=== PATIENT | male | born 1975 | race African-American/Black ===

== ENCOUNTER 2016-09-21 20:08 | Emergency (ER) | payer SELFPAY ==
[2016-09-21] MEDS ORDERED: Ketorolac INJ* 30 MG/ML 1 ML VIAL IV ONE (21:07)
[2016-09-21] MEDS ORDERED: Ondansetron INJ* 2 MG/ML VIAL IV ONE (21:07)
[2016-09-21] MEDS ORDERED: NS 0.9% 1000 ML* 1,000 ML IV ONE (21:07)
--- NOTE | 2016-09-21 21:32 | ED ---
Abdominal Pain/Male - HPI Summary HPI Summary: 41 male presents with complaints of nausea vomiting and abdominal pain that began around 1600 today 09/21/16. Patient states he was experiencing the same symptoms a few days ago for a week straight that he thought was the flu and treated himself with OTC medication. The symptoms subsided for 2-3 days however have seemed to return today while at work at 1600. Patient states he vomited and had episodes of diarrhea about 3 times. Denies blood in vomit or diarrhea. Denies eating out besides the food he eats at his work ([employer]) and a piece of pizza this morning. He has not eaten anything else today. Has been drinking fluids. Admits to a headache. States he was at work and became diaphoretic experiencing cold sweats when he passed out for a couple of seconds per bystanders. He was brought in by EMS. Admits to headache and nausea right now. Also complains of mid-back pain that he relates from falling and hitting the wall during syncopal episode. - History of Current Complaint Chief Complaint: EDNauseaVomitDiarrh Stated Complaint: GENERAL ILLNESS Time Seen by Provider: 09/21/16 20:32 Hx Obtained From: Patient Onset/Duration: Sudden Onset Timing: Intermittent Severity Initially: Mild Severity Currently: Mild Pain Intensity: 6 Pain Scale Used: 0-10 Numeric Location: Diffuse - abdomen, mid-back pain bony tenderness due to fall Radiates: No Character: Cramping Aggravating Factor(s): Nothing Alleviating Factor(s): Nothing Associated Signs And Symptoms: Positive: Diaphoresis, Back Pain - hit wall upon syncopal episode, bony tenderness, Decreased Appetite, Vomiting, Diarrhea. Negative: Urinary Symptoms - Allergies/Home Medications Allergies/Adverse Reactions: Allergies Allergy/AdvReac Type Severity Reaction Status Date / Time Morphine Allergy Rash Verified 09/21/16 20:12 Penicillins Allergy Rash Verified 09/21/16 20:12 PMH/Surg Hx/FS Hx/Imm Hx Endocrine/Hematology History: Denies: Hx Diabetes Cardiovascular History: Denies: Hx Hypertension History: Reports: Other Problems/Disorders - one kidney - Surgical History Surgery Procedure, Year, and Place: none - Immunization History Date of Tetanus Vaccine: utd Date of Influenza Vaccine: none Immunizations Up to Date: Yes Infectious Disease History: No Infectious Disease History: Denies: Traveled Outside the [place] in Last 30 Days - Family History Known Family History: Positive: Diabetes - Social History Alcohol Use: None Substance Use Type: Reports: Marijuana Substance Use Comment - Amount & Last Used: daily Smoking Status (MU): Light Every Day Tobacco Smoker Review of Systems Positive: Chills, Skin Diaphoresis Eyes: Negative ENT: Negative Cardiovascular: Negative Respiratory: Negative Positive: Abdominal Pain, Vomiting, Diarrhea, Nausea Genitourinary: Negative Musculoskeletal: Negative Skin: Negative Positive: Headache Psychological: Normal All Other Systems Reviewed And Are Negative: Yes Physical Exam Triage Information Reviewed: Yes Vital Signs On Initial Exam: Initial Vitals Temp Pulse Resp BP Pulse Ox 98.6 F 70 16 111/64 100 09/21/16 20:15 09/21/16 20:15 09/21/16 20:15 09/21/16 20:15 09/21/16 20:15 Vital Signs Reviewed: Yes Appearance: Positive: No Pain Distress, Well-Nourished, Ill-Appearing Skin: Positive: Warm, Skin Color Reflects Adequate Perfusion, Dry. Negative: Diaphoretic, Pale, Erythema @ Head/Face: Positive: Normal Head/Face Inspection Eyes: Positive: Normal, EOMI, SILVIA, Conjunctiva Clear ENT: Positive: Normal ENT inspection, Hearing grossly normal, Pharynx normal Neck: Positive: Supple, Nontender, No Lymphadenopathy Respiratory/Lung Sounds: Positive: Clear to Auscultation, Breath Sounds Present Cardiovascular: Positive: Normal, RRR, Pulses are Symmetrical in both Upper and Lower Extremities Abdomen Description: Positive: No Organomegaly, Soft, Bruit, Guarding, McBurney' s Point Tenderness, Other: - tender on palpation of RLQ and RUQ, minimal tenderness on left side. no percussion tenderness. Rebound, Rovsing and Psoas sign negative. (-)[place]. Negative: CVA Tenderness (R), CVA Tenderness (L), Distended, Hepatomegaly, Splenomegaly Bowel Sounds: Positive: Present Musculoskeletal: Positive: Normal, Strength/ROM Intact, Pain @ - on palpation of lumbar spine no visible deformity, bruising, erythema or edema noted. no crepitus or step-off. skin and sensation intact. Neurological: Positive: Normal, Sensory/Motor Intact, Alert, Oriented to Person Place, Time, CN Intact II-III, Reflexes Intact, NV Bundle Intact Distally, Normal Gait Psychiatric: Positive: Normal, Affect/Mood Appropriate - Vinson Coma Scale Best Eye Response: 4 - Spontaneous Best Motor Response: 6 - Obeys Commands Best Verbal Response: 5 - Oriented Coma Scale Total: 15 Diagnostics - Vital Signs Vital Signs Temp Pulse Resp BP Pulse Ox 09/21/16 20:15 98.6 F 70 16 111/64 100 - Laboratory Result Diagrams: 09/21/16 21:30 09/21/16 21:30 Lab Statement: Any lab studies that have been ordered have been reviewed, and results considered in the medical decision making process. - Radiology lumbar spine Xray Interpretation: No Acute Changes - NO EVIDENCE FOR FRACTURE. Radiology Interpretation Completed By: Radiologist - CT abdomen/pelvis CT Interpretation: No Acute Changes - normal gallbladder and appendix. absent left kidney, no definite evidence of acute pathology. Re-Evaluation - Re-Evaluation First Eval Re-Evaluation Time: 01:00 Change: Improved - feeling better Second Eval Re-Evaluation Time: 14:00 Change: Improved Comment: still feels better, has not vomited, not nauseous and is able to eat 3 jellos and drink water Abdominal Pain Fem Course/Dx - Course Course Of Treatment: Labs, UA and x-ray of lumbar spine and CT with contrast obtained. X-ray negative. CT negative. Patient vomited once before zofran administered. Green bile in appearanc. Fluids, toradol and zofran administered for headache and nausea. Patient was feeling much better able to eat and drink. Will be d/c with zofran and told to follow up with primary. Aware of worsening signs and symptoms. - Diagnoses Differential Diagnosis/HQI/PQRI: Appendicitis, Constipation, Diverticulitis, Gall Bladder Disease, Pancreatitis, Urinary Tract Infection, Other Provider Diagnoses: Viral gastroenteritis, Nausea & vomiting, Diarrhea - Provider Notifications Discussed Care Of Patient With: Dr Pro Discharge - Discharge Plan Condition: Stable Disposition: HOME Prescriptions: Ondansetron TAB* [Zofran 4 MG Tab*] 4 mg PO Q6H PRN #25 tab PRN Reason: Nausea Forms: *Work Release Referrals: No Primary Care Phys,NOPCP [Primary Care Provider] - [facility] [place] [facility]ICIAN REFERRAL [Outside] Additional Instructions: Take prescribed zofran for nausea as needed every 4-6 hours. Take a probiotic pill or eat japanese yogurt to help replenish the good bacteria in your digestive tract. Drink plenty of fluids. Recommenced eating bland foods and not eating out. Bread, rice, applesauce and toast. You may also try OTC anti-diarrheal medications if you would like. If you experience worsening symptoms such as profuse vomiting, blood in stool or vomit, dehydration, unable to eat and severe abdominal pain please seek medical attention promptly and return. Follow up with primary care provider is recommended.
[2016-09-21 21:46] LABS: Hematocrit 40 % (42-52); Hemoglobin 12.9 g/dl (14.0-18.0); Mean Corpuscular HGB Conc 32 g/dl (31-36); Mean Corpuscular Hemoglobin 26 pg (27-31); Mean Corpuscular Volume 79 fL (80-94); Mean Platelet Volume 8 um3 (7.4-10.4); Red Blood Count 5.07 10^6/ul (4.0-5.4); Red Cell Distribution Width 14 % (10.5-15); White Blood Count 13.1 10^3/ul (3.5-10.8)
[2016-09-21 21:59] LABS: Albumin 4.3 g/dL (3.2-5.2); BUN/Creatinine Ratio 12.4 (8-20); C Reactive Protein 1.06 mg/L (< 5.00); Calcium 9.5 mg/dL (8.6-10.3); EGFR African American 109.2 (>60); EGFR Non-African American 84.9 (>60); Globulin 3.4 g/dL (2-4); Potassium 3.7 mmol/L (3.5-5.0); Total Bilirubin 0.3 mg/dL (0.2-1.0); Total Protein 7.7 g/dL (6.4-8.9)
--- NOTE | 2016-09-21 22:03 | RAD ---
INDICATION: Injury, back pain. COMPARISON: There are no prior studies available for comparison. TECHNIQUE: 3 views of the lumbar spine were obtained including lateral, AP and a coned-down lateral view of the lumbar sacral junction. FINDINGS: The vertebra are in normal alignment. No fracture is seen. Disc spaces appear maintained. IMPRESSION: NO EVIDENCE FOR FRACTURE.
[2016-09-21] MEDS ORDERED: Iodixanol* (CONTRAST) 320 MG/ML 100 ML SDV IV ONE (22:55)
[2016-09-22 02:15] VITALS: BP 132/111
[2016-09-22 02:24] LABS: Urine Bacteria Absent (Absent); Urine Bilirubin Negative (Negative); Urine Glucose Negative (Negative); Urine Nitrite Negative (Negative)
[2016-09-22] MEDS ORDERED: Ondansetron ODT TAB* 4 MG PO ONE (02:42)
--- NOTE | 2016-09-22 09:08 | RAD ---
Indication: Abdominal pain. Contrast: Administered 80.0 ml of VISIPAQUE 320 mg/ml CT of the abdomen and pelvis was performed after oral and IV contrast administration. Lung bases demonstrate no pleural fluid, nodules or masses. Heart is of normal size without evidence of pericardial effusion. Liver is normal in size. No focal lesions or intrahepatic duct dilatation is noted. The gallbladder is partially contracted. No pericholecystic fluid or wall thickening is noted. The spleen is normal in size. The pancreas demonstrates no mass or pancreatic duct dilatation. The common duct is not dilated. Bilateral adrenal hyperplasia is noted. There is an absent left kidney noted. The right kidney is grossly. The patient has had a left nephrectomy. No retroperitoneal adenopathy is noted. Aorta demonstrates no evidence of aneurysmal dilatation. No pelvic adenopathy is identified. The appendix is visualized and is unremarkable. No dilated loops of bowel are noted. No retroperitoneal lymphadenopathy is noted. No free fluid is identified. Normal appendix is identified. The urinary bladder and prostate are unremarkable. IMPRESSION: CONTRACTED GALLBLADDER. NORMAL APPENDIX. NO ABNORMAL MASSES OR FLUID COLLECTIONS ARE IDENTIFIED. PATIENT STATUS POST LEFT NEPHRECTOMY.
--- NOTE | 2016-09-23 09:17 | ED ---
IMarcus Aidan, scribed for Demarcus Pro MD on 09/22/16 at 0146 . Progress - Progress Note Progress Note: Pt came with a complaint of vomiting and diarrhea for several days. Sx went away for some time, but then he had more vomiting today as well as suprapubic tenderness and R flank pain. Course/Dx - Course Course Of Treatment: Labs and x-ray of lumbar spine obtained. Fluids, toradol and zofran administered for headache and nausea. - Diagnoses Provider Diagnoses: Viral gastroenteritis, Nausea & vomiting, Diarrhea The documentation as recorded by the Marcus stephen Aidan accurately reflects the service I personally performed and the decisions made by , Demarcus Pro MD.
== END 2016-09-22 03:00 | disposition home or self-care (01) ==
LOC: ED 20:08
DX: K52.9 Noninfective gastroenteritis and colitis, unspecified (principal); R11.2 Nausea with vomiting, unspecified; R19.7 Diarrhea, unspecified; M54.9 Dorsalgia, unspecified; R51 Headache
CPT/HCPCS: 36415; 72100; 74177; 80053; 81003; 81015; 83605; 83690; 85025; 86140; 87502; 96374; 96375; 99283; J1885; J2405; Q9967

== ENCOUNTER 2019-04-25 20:01 | Emergency (ER) | payer SELFPAY ==
--- OUTSIDE RECORDS SUMMARY | 2019-04-25 20:14 | XMS REPORT | Summary of Care ---
:1975 Author Organization [facility] Address [address] [facility] [place] [address] Care Team Providers Name Role Phone Zoe Gonzalez DO Primary Care Provider Reason for Referral Refer to Department Only (Routine) Status Reason Specialty Diagnoses / Referred By Referred To Procedures Contact Contact Pending Review Gastroenterology Diagnoses Dysphagia, unspecified type Zoe Ying Gastroenterolo DO gy [address] [place] [address] [place] Phone: [phone] Phone: Scheduling Instructions Is the patient on cpap machine?No Is the patient on oxygen?No BP 118/70 | Pulse 80 | Temp 96.8 F (36 C) (Tympanic) | Resp 18 | Ht 5' 9" (1.753 m) | Wt 120 lb (54.4 kg) | SpO2 97% | BMI 17.72 kg/m BMI Readings from Last 4 Encounters: 03/19/19 : 17.72 kg/m 09/06/18 : 18.90 kg/m 12/21/16 : 18.13 kg/m Controlled Substance Medications: Anticoagulant Medications: Psychiatric/Antianxiety Medications: Antiretroviral Medications: Reason for Visit Reason Comments Establish Care Encounter Details Date Type Department Care Team Description 03/19/2019 Office Visit Violet Odell, Encounter to establish care (Primary Dx); Practice DO Zoe Anemia, unspecified type; [address] Dysphagia, unspecified type; [place] [address] Gastroesophageal reflux disease without esophagitis; [id number] Anxiety; [phone] Low back pain, unspecified back pain laterality, unspecified chronicity, with sciatica presence unspecified; Substance dependence ([facility]) Allergies Active Allergy Reactions Severity Noted Date Comments Penicillin G Hives 10/16/2016 Vancomycin Dermatologic Reaction 12/26/2017 itching documented as of this encounter (statuses as of 03/20/2019) Medications Medication Sig Dispensed Refills Start Date End Date Status escitalopram Take 1 Tab by 30 Tab 0 03/19/2019 Active (LEXAPRO) 10 MG Oral mouth DAILY. TabIndications: Anxiety ciprofloxacin Take 1 Tab by 6 Tab 0 10/16/2016 03/19/2019 Discontinued (CIPRO) 500 MG Oral mouth TWICE Tab DAILY. Tamsulosin HCl Take 1 Cap by 14 Cap 0 10/16/2016 03/19/2019 Discontinued (FLOMAX) 0.4 MG Oral mouth DAILY. Cap HYDROcodone-acetamin Take 1 Tab by 18 Tab 0 12/20/2018 03/19/2019 Discontinued ophen (NORCO) 5-325 mouth EVERY MG Oral Tab FOUR HOURS NEEDED (moderate to severe pain). Max Daily Amount: 6 Tabs. documented as of this encounter (statuses as of 03/20/2019) Active Problems No known active problemsdocumented as of this encounter (statuses as of 2018) Social History Tobacco Use Types Packs/Day Years Used Date Current Every Day Smoker Cigarettes 1 3 Smokeless Tobacco: Never Used Alcohol Use Drinks/Week oz/Week Comments No Sex Assigned at Date Recorded Not on file Job Start Date Occupation Industry Not on file Not on file Not on file Travel History Travel Start Travel End No recent travel history available. documented as of this encounter Last Filed Vital Signs Vital Sign Reading Time Taken Comments Blood Pressure 118/70 03/19/2019 10:25 AM EDT Pulse 80 03/19/2019 10:25 AM EDT Temperature 36 03/19/2019 10:25 AM EDT C (96.8 F) Respiratory Rate 18 03/19/2019 10:25 AM EDT Oxygen Saturation 97% 03/19/2019 10:25 AM EDT Inhaled Oxygen Concentration - - Weight 54.4 kg (120 lb) 03/19/2019 10:25 AM EDT Height 175.3 cm (5' 9") 03/19/2019 10:25 AM EDT Body Mass Index 17.72 03/19/2019 10:25 AM EDT documented in this encounter Patient Instructions Patient InstructionsZoe Gonzalez DO - 03/19/2019 10:00 AM EDTGo to [address] [place] to get blood work done (Fasting) Schedule appointment with [facility] for GI referral. Lexapro sent to your pharmacy. Follow up in 1 month, sooner if needed. Zoe Odell DO documented in this encounter Progress Notes Zoe Gonzalez DO - 03/19/2019 10:00 AM EDT PATIENT: Omar Centeno : 1975 DATE OF SERVICE: 03/19/2019 CHIEF COMPLAINT: Chief Complaint Patient presents with [facility] Subjective HISTORY OF PRESENT ILLNESS: Omar Centeno is a 43-y.o. male. HPI Patient presents today to [facility]. Patient has never seen a physician and is not currently taking any medications for any chronic issues. He has a history of anemia and does admit to feeling fatigued recently, which he states may be attributed to working two jobs and an increase in stress at home. His last CBC was in December 2018 and Hgb was 12.3. Patient states that he was told to take iron pills, but he has not taken any. Patient also admits to having some panic attacks for the past few years. He states these only occur about once a month and are usually triggered by stress. When these attacks occur, he says he can't breath, his chest feels tight, and his heart feels like it is racing. He has not seen a physician for these and has never been formally diagnosed. Patient also complaints of food getting stuck in his throat while eating. He says this has been going on for 3-4 months and happens almost every time he eats. He also admits to some symptoms of acid reflux- burning and belching. He has not tried any OTC medications for his reflux. Also admits to low back pain, triggered by lifting heavy boxes at work. He has not tried anything for relief. Patient has one kidney, as he donated one to his Uncle in 1999. Declines flu shot, pneumonia vaccination and HIV screening today. Past Medical History: Diagnosis Date Anemia Family History Problem Relation Age of Onset Diabetes Mother No current outpatient medications on file. No current facility-administered medications for this visit. Allergies Allergen Reactions Penicillin G Hives Vancomycin Dermatologic Reaction itching Social History Socioeconomic History Marital status: Spouse name: Not on file Number of children: Not on file Years of education: Not on file Highest education level: Not on file Occupational History Not on file Social Needs Financial resource strain: Not on file Food insecurity: Worry: Not on file Inability: Not on file Transportation needs: Medical: Not on file Non-medical: Not on file Tobacco Use Smoking status: Current Every Day Smoker Packs/day: 1.00 Years: 3.00 Pack years: 3.00 Types: Cigarettes Smokeless tobacco: Never Used Substance and Sexual Activity Alcohol use: No Drug use: No Sexual activity: Yes Lifestyle Physical activity: Days per week: Not on file Minutes per session: Not on file Stress: Not on file Relationships Social connections: Talks on phone: Not on file Gets together: Not on file Attends jew service: Not on file Active member of club or organization: Not on file Attends meetings of clubs or organizations: Not on file Relationship status: Not on file Intimate partner violence: Fear of current or ex partner: Not on file Emotionally abused: Not on file Physically abused: Not on file Forced sexual activity: Not on file Other Topics Concern Back Care Not Asked Bike Helmet Not Asked Blood Transfusions Not Asked Caffeine Concern Not Asked Exercise Not Asked Hobby Hazards Not Asked International Travel Not Asked Service Not Asked Occupational Exposure Not Asked Seat Belt Not Asked Self-Exams Not Asked Sleep Concern Not Asked Special Diet Not Asked Stress Concern Not Asked Weight Concern Not Asked Social History Narrative Not on file Over the last 2 weeks, have you been feeling down, depressed, anxious, or hopeless?: 0 Over the past 2 weeks, have you felt little interest or pleasure in doing things ?: 0 REVIEW OF SYSTEMS: Review of Systems Constitutional: Positive for malaise/fatigue. Negative for chills and fever. HENT: Negative for congestion, hearing loss and sore throat. Eyes: Negative for blurred vision, double vision and photophobia. Respiratory: Negative for cough, shortness of breath and wheezing. Cardiovascular: Negative for chest pain, palpitations and leg swelling. Gastrointestinal: Positive for heartburn. Negative for constipation, diarrhea, nausea and vomiting. Genitourinary: Negative for dysuria, frequency and urgency. Musculoskeletal: Positive for back pain. Negative for joint pain and neck pain. Skin: Negative for itching and rash. Neurological: Negative for dizziness, weakness and headaches. Psychiatric/Behavioral: Positive for substance abuse. Negative for depression. The patient is nervous/anxious. Objective PHYSICAL EXAM: VITALS: BP 118/70 | Pulse 80 | Temp 96.8 F (36 C) (Tympanic) | Resp 18 | Ht 5' 9" (1.753 m) | Wt 120 lb (54.4 kg) | SpO2 97% | BMI 17.72 kg/m Body mass index is 17.72 kg/m. Physical Exam Constitutional: He is oriented to person, place, and time. He appears well- developed and well-nourished. HENT: Head: Normocephalic and atraumatic. Right Ear: External ear normal. Left Ear: External ear normal. Eyes: Pupils are equal, round, and reactive to light. EOM are normal. Neck: Normal range of motion. No tracheal deviation present. No thyromegaly present. Cardiovascular: Normal rate, regular rhythm and normal heart sounds. Exam reveals no gallop and no friction rub. No murmur heard. Pulmonary/Chest: Effort normal and breath sounds normal. No respiratory distress. He has no wheezes.He has no rales. Abdominal: Soft. Bowel sounds are normal. There is tenderness (epigastric). There is guarding. Musculoskeletal: Normal range of motion. He exhibits no edema. Lymphadenopathy: He has no cervical adenopathy. Neurological: He is alert and oriented to person, place, and time. Skin: Skin is warm and dry. Psychiatric: He has a normal mood and affect. His behavior is normal. Judgment and thought content normal. ASSESSMENT / IMPRESSION: ICD-9-CM ICD-10-CM 1. Encounter to establish care V65.8 Z76.89 CBC NO DIFFERENTIAL LIPID PROFILE 2. Anemia, unspecified type 285.9 D64.9 CBC NO DIFFERENTIAL 3. Dysphagia, unspecified type 787.20 R13.10 REFER TO GI 4. Gastroesophageal reflux disease without esophagitis 530.81 K21.9 5. Anxiety 300.00 F41.9 escitalopram (LEXAPRO) 10 MG Oral Tab 6. Low back pain, unspecified back pain laterality, unspecified chronicity, with sciatica presence unspecified 724.2 M54.5 7. Substance dependence ([facility]) 304.90 F19.20 Plan Establish Care -Will order CBC and Lipid Profile Anemia -Will order CBC Dysphagia -Referral to GI GERD -Told patient he can try OTC medications for his reflux symptoms Anxiety -Will start trial of Lexapro 10mg daily -Patient declines therapy/counseling at this time -Will reassess at next visit Low Back Pain -Explained to patient that he can try OTC remedies, such as Tylenol. Can also try heat/ice -Patient can also make an appointment for OMT for his back pain -If pain does not resolve, will consider PT referral Substance Dependence -Patient admits to smoking marijuana daily -Counseled patient that this may be contributing to his fatigue and anxiety Follow-up in 1 month, sooner if needed Patient seen and discussed with Dr. Palacios, who agrees with the above assessment and plan. Author: Zoe Odell DO 03/19/2019 10:28 documented in this encounter Plan of Treatment Date Type Specialty Care Team Description 05/19/2019 Office Visit [facility] Zoe Gonzalez DO [address] [place] [address] Name Type Priority Associated Diagnoses Order Schedule CBC NO DIFFERENTIAL Lab Routine Anemia, unspecified type Expected: 03/19/2019 Encounter to establish care (Approximate), Expires: 03/19/2020 LIPID PROFILE Lab Routine Encounter to establish care Expected: 03/19/2019 (Approximate), Expires: 03/19/2020 Name Type Priority Associated Diagnoses Order Schedule REFER TO GI Referral Routine Dysphagia, unspecified type Expected: 2018, Expires: 03/19/2020 Health Maintenance Due Date Last Done Comments PNEUMOCOCCAL 0-64 YRS (1 of - 1980 PPSV23) HIV SCREENING 1989 LIPID DISORDER SCREENING 1992 DEPRESSION SCREENING 03/19/2020 03/19/2019 INFLUENZA VACCINE (#1) 2020 Postponed from 03/08/2019 (Patient refused) HPV IMMUNIZATION SERIES Aged Out No longer eligible based on patient's age to complete this topic MENINGOCOCCAL VACCINE IMM Aged Out No longer eligible based on patient's age to complete this topic documented as of this encounter Results Not on filedocumented in this encounter Visit Diagnoses Diagnosis Encounter to establish care - Primary Other reasons for seeking consultation Anemia, unspecified type Dysphagia, unspecified type Gastroesophageal reflux disease without esophagitis Esophageal reflux Anxiety Anxiety state, unspecified Low back pain, unspecified back pain laterality, unspecified chronicity, with sciatica presence unspecified Substance dependence (HCC) Unspecified drug dependence, unspecified documented in this encounter Insurance Payer Benefit Plan / Subscriber ID Effective Dates Phone Address Type Group [facility] [employer] [facility] x[facility]x 2018-[facility] [employer] [facility]([phone]) [facility] [employer] [facility] xxxxxxxxxx 2018-[facility] [employer] [facility]([id number]) MEDICAID [facility] xxxxxxxxxx 2018-[place] [employer] [place] [employer] t documented as of this encounter
[2019-04-25] MEDS ORDERED: NS 0.9% 1000 ML** 1,000 ML IV ONE (20:16)
--- NOTE | 2019-04-25 20:17 | ED ---
Neurological HPI - HPI Summary HPI Summary: This patient is a 43 year old M LENNY via EMS to ED with a chief complaint of syncopal episode at work earlier today. Patient works in the kitchen. He reports having a headache all day and felt tired. He ate some candy bars since he felt like his blood sugar levels were low, but then he started to feel that the room was spinning and then had a syncopal episode. Patient hit the back of his head on a breaker box. Patient is slightly anemic, but he takes iron pills. In the ED room, patient reports having headache and fatigue. He does not have a history of headache/migraines, but he does report having had syncopal episodes like this before. The patient rates the pain 9/10 in severity. Symptoms aggravated by nothing. Symptoms alleviated by nothing. - History of Current Complaint Chief Complaint: EDSyncope Stated Complaint: SYNCOPE PER EMS Time Seen by Provider: 04/25/19 20:09 Hx Obtained From: Patient Onset/Duration: Sudden Onset, Started hours ago, Still Present - Headache/tired Timing: Constant Onset Severity: Severe Current Severity: Severe Pain Intensity: 9 Pain Scale Used: 0-10 Numeric Character: Room Spinning, Weak Number of Episodes: 1 Syncope Context: Loss of Consciousness: Yes, Activity, Associated Head Trauma Aggravating: Nothing Alleviating: Nothing Associated Signs and Symptoms: Positive: Headache - Allergy/Home Medications Allergies/Adverse Reactions: Allergies Allergy/AdvReac Type Severity Reaction Status Date / Time morphine Allergy Rash Verified 04/25/19 21:50 Penicillins Allergy Rash Verified 04/25/19 21:50 PMH/Surg Hx/FS Hx/Imm Hx Endocrine/Hematology History: Denies: Hx Diabetes Cardiovascular History: Denies: Hx Hypertension History: Reports: Other Problems/Disorders - one kidney Denies: Hx Renal Disease - Surgical History Surgery Procedure, Year, and Place: none - Immunization History Date of Tetanus Vaccine: utd Date of Influenza Vaccine: none Infectious Disease History: No Infectious Disease History: Denies: Traveled Outside the [place] in Last 30 Days - Family History Known Family History: Positive: Diabetes - Social History Alcohol Use: None Hx Substance Use: Yes Substance Use Type: Reports: Marijuana Substance Use Comment - Amount & Last Used: daily Hx Tobacco Use: Yes Smoking Status (MU): Heavy Every Day Tobacco Smoker Amount Used/How Often: 1ppd Review of Systems Positive: Fatigue Positive: Headache All Other Systems Reviewed And Are Negative: Yes Physical Exam - Summary Physical Exam Summary: Appearance: The patient is well-nourished in no acute distress and in no acute pain. Skin: The skin is warm and dry, and skin color reflects adequate perfusion. HEENT: The head is normocephalic and atraumatic. The pupils are equal and reactive. The conjunctivae are clear and without drainage. Nares are patent and without drainage. Mouth reveals moist mucous membranes, and the throat is without erythema and exudate. The external ears are intact. The ear canals are patent and without drainage. The tympanic membranes are intact. Neck: The neck is supple with full range of motion and non-tender. There are no carotid bruits. There is no neck vein distension. Respiratory: Chest is non-tender. Lungs are clear to auscultation and breath sounds are symmetrical and equal. Cardiovascular: Heart is regular rate and rhythm. There is no murmur or rub auscultated. There is no peripheral edema and pulses are symmetrical and equal. Abdomen: The abdomen is soft and non-tender. There are normal bowel sounds heard in all four quadrants and there is no organomegaly palpated. Musculoskeletal: There is no back tenderness noted. Extremities are non-tender with full range of motion. There is good capillary refill. There is no peripheral edema or calf tenderness elicited. Neurological: Patient is alert and oriented to person, place and time. The patient has symmetrical motor strength in all four extremities. Cranial nerves are grossly intact. Deep tendon reflexes are symmetrical and equal in all four extremities. GCS: 15. Psychiatric: The patient has an appropriate affect and does not exhibit any anxiety or depression. Triage Information Reviewed: Yes Vital Signs On Initial Exam: Initial Vitals Temp Pulse Resp BP Pulse Ox 98.5 F 63 16 131/95 99 04/25/19 20:02 04/25/19 20:02 04/25/19 20:02 04/25/19 20:02 04/25/19 20:02 Vital Signs Reviewed: Yes Procedures - Sedation Patient Received Moderate/Deep Sedation with Procedure: No Diagnostics - Vital Signs Vital Signs Temp Pulse Resp BP Pulse Ox 04/25/19 20:02 98.5 F 63 16 131/95 99 - Laboratory Result Diagrams: 04/25/19 20:24 04/25/19 20:24 Lab Statement: Any lab studies that have been ordered have been reviewed, and results considered in the medical decision making process. - EKG 2003 Cardiac Rate: NL - 73 BPM EKG Rhythm: Sinus Rhythm ST Segment: Normal Ectopy: None Summary of EKG Findings: Normal sinus rhythm at 73 BPM, normal ST, no ectopy, no STEMI. ED physician has reviewed and interpreted this EKG. Re-Evaluation - Re-Evaluation First Eval Re-Evaluation Time: 21:44 Comment: Patient reports still feeling weak and anxious. Course/Dx - Course Course Of Treatment: Mr. Centeno had of forewarned syncopal episode while working in a hot kitchen. He has had these before. He was nontoxic in appearance with stable vitals. He was placed on a monitor and observed while IV was initiated and labs were checked while he was getting IV fluid. At one point he began to complain that he couldn't remember why he was in the emergency department. He had been napping and just woken up. He was very anxious when I saw him and his informed me that he had just been started on anti-anxiety medicine [address] scan was obtained which was negative to my reading and I discussed the possibility of a lumbar puncture with him. He was resistant to this idea and obviously anxious therefore I ordered Ativan for him. He is being turned over it and if shift pending official CT read and recheck after Ativan. - Diagnoses Provider Diagnoses: Syncope Discharge ED - Sign-Out/Discharge Documenting (check all that apply): Sign-Out Patient Signing out patient TO: Mendel Ingram - Discharge Plan Condition: Good Disposition: HOME Patient Education Materials: Syncope (ED) Referrals: [facility] [Outside] - 1 Week - Billing Disposition and Condition Condition: GOOD Disposition: Home - Attestation Statements Document Initiated by Scribe: Yes Documenting Scribe: Deion Ogden Provider For Whom Dorothy is Documenting (Include Credential): Mendel Olvera MD Scribe Attestation: I, Deion Ogden, scribed for Mendel Olvera MD on 04/26/19 at 1032. Scribe Documentation Reviewed: Yes Provider Attestation: The documentation as recorded by the Deion stephen accurately reflects the service I personally performed and the decisions made by me, Mendel Olvera MD Status of Scribe Document: Viewed
[2019-04-25 20:31] LABS: ABS Eosinophils 0.1 10^3/ul (0-0.6); ABS Lymphocytes 2.5 10^3/ul (1.0-4.8); ABS Monocytes 0.6 10^3/ul (0-0.8); ABS Neutrophils 6.1 10^3/ul (1.5-7.7); Eosinophil % 0.8 %; Hematocrit 38 % (42-52); Hemoglobin 12.4 g/dL (14.0-18.0); Lymphocyte % 26.5 %; Mean Corpuscular HGB Conc 33 g/dL (31-36); Mean Corpuscular Hemoglobin 26 pg (27-31); Mean Corpuscular Volume 79 fL (80-94); Mean Platelet Volume 7.7 fL (7.4-10.4); Nucleated Red Blood Cells % 0.1; Platelet Count 252 10^3/uL (150-450); Red Blood Count 4.82 10^6 /uL (4.18-5.48); Red Cell Distribution Width 20 % (10-15); White Blood Count 9.2 10^3/uL (3.5-10.8)
[2019-04-25] MEDS ORDERED: Ketorolac INJ* 30 MG/ML 1 ML VIAL IV PUSH ONE (20:34)
[2019-04-25 20:48] LABS: Albumin 4.4 g/dL (3.2-5.2); Albumin/Globulin Ratio 1.3 (1-3); BUN/Creatinine Ratio 9.6 (8-20); Calcium 9.4 mg/dL (8.6-10.3); EGFR African American 84.4 (>60); EGFR Non-African American 69.8 (>60); Globulin 3.3 g/dL (2-4); Magnesium 2.1 mg/dL (1.9-2.7); Potassium 3.2 mmol/L (3.5-5.0); Total Bilirubin 0.4 mg/dL (0.2-1.0); Total Protein 7.7 g/dL (6.4-8.9)
[2019-04-25 21:41] LABS: TSH (Thyroid Stimulating Horm) 2.88 mcIU/mL (0.34-5.60)
[2019-04-25] MEDS ORDERED: Lorazepam PYXIS KEY PRN (21:44)
[2019-04-25] MEDS ORDERED: LORazepam INJ* 2 MG/ML 1 ML VIAL IV ONE (21:44)
--- NOTE | 2019-04-25 22:16 | ED ---
Progress - Progress Note Progress Note: This patient was signed out from Dr. Olvera to Dr. Ingram at shift change at 2200 on 04/25/19, pending disposition, awaiting Brain CT. Brain CT reveals, per radiologist, IMPRESSION: No acute intracranial abnormality. ED physician has reviewed this radiology report. The patients condition is stable and will be discharged to home with Dx of syncope. - Results/Orders Results/Orders: Brain CT reveals, per radiologist, IMPRESSION: No acute intracranial abnormality. ED physician has reviewed this radiology report. Course/Dx - Course Course Of Treatment: This patient was signed out from Dr. Olvera to Dr. Ingram at shift change at 2200 on 04/25/19, pending disposition, awaiting Brain CT. Brain CT reveals, per radiologist, IMPRESSION: No acute intracranial abnormality. ED physician has reviewed this radiology report. The patients condition is stable and will be discharged to home with Dx of syncope. - Diagnoses Provider Diagnoses: Syncope Discharge ED - Sign-Out/Discharge Documenting (check all that apply): Patient Departure - Discharge - Discharge Plan Condition: Good Disposition: HOME Patient Education Materials: Syncope (ED) Referrals: [facility] [Outside] - 1 Week - Billing Disposition and Condition Condition: GOOD Disposition: Home - Attestation Statements Document Initiated by Scribe: Yes Documenting Scribe: Deidre Dsouza Provider For Whom Dorothy is Documenting (Include Credential): Mendel Ingram MD Scribe Attestation: Deidre Morejon, scribed for Mendel Ingram MD on 04/26/19 at 2052. Scribe Documentation Reviewed: Yes Provider Attestation: The documentation as recorded by the Deidre stephen accurately reflects the service I personally performed and the decisions made by Mendel reza MD Status of Scribe Document: Viewed
[2019-04-25 23:46] VITALS: BP 118/50
== END 2019-04-25 23:51 | disposition home or self-care (01) ==
LOC: ED 20:01
DX: R55 Syncope and collapse (principal); F17.200 Nicotine dependence, unspecified, uncomplicated; Z88.0 Allergy status to penicillin; Z88.5 Allergy status to narcotic agent
CPT/HCPCS: 36415; 70450; 80053; 83605; 83735; 84443; 84484; 85025; 93005; 96361; 96374; 96375; 99283; J1885; J2060